=== PATIENT | male | born 2000 | race Caucasian/White ===

== ENCOUNTER 2020-12-02 21:48 | Emergency (ER) | payer OTHER, MEDICAID, SELFPAY ==
[2020-12-02 21:55] VITALS: BP 148/89; PULSE 65; RESP 17; TEMP 36.8; O2SAT 100; BMI 26.6
[2020-12-02 22:24] VITALS: BP 122/79; O2SAT 98
--- NOTE | 2020-12-02 22:34 | ED.BACK ---
HPI - Back Pain/Injury General Chief Complaint: Back Pain/Injury Stated Complaint: RIGHT SIDE BACK LOWER PAIN Time Seen by Provider: 12/02/20 22:28 Source: patient Mode of arrival: Ambulatory Limitations: no limitations History of Present Illness HPI Narrative: Patient is a 20-year-old male here for evaluation of right lower back pain. Patient states that he was working on his car all day today and then this evening bent over to fruit or nut picker his child and had some pain in this area. He has no radiation down his legs peers never had this in the past. He states that his told him to come in to get his kidneys checked. Related Data Home Medications Medication Instructions Recorded Confirmed [FLOVENT HFA] PRN #0 01/11/11 Previous Rx's Medication Instructions Recorded ALBUTEROL SULFATE (PROVENTIL 3 ml INH Q4HP #1 07/19/11 0.083%) montelukast [Singulair] 5 mg PO QDAY #30 07/19/11 methylphenidate HCl [Concerta] 54 mg PO Q DAY #30 05/05/12 ALBUTEROL SULFATE (#VENTOLIN HFA) 0.09 mg IH Q4HP #2 09/03/12 Allergies Allergy/AdvReac Type Severity Reaction Status Date / Time No Known Drug Allergies Allergy Verified 12/02/20 22:15 Review of Systems Constitutional Constitutional: Denies fever(s) Cardiovascular Cardiovascular: Denies chest pain and Denies dyspnea Respiratory Respiratory: Denies dyspnea Gastrointestinal Gastrointestinal: Denies abdominal pain Musculoskeletal Musculoskeletal: Reports back pain and Denies tingling Integumentary/Breasts Skin/Breast: Denies rash Neurologic Neurologic: Denies tingling and Denies paresthesias Hematologic/Lymphatic On Anticoagulants: No Allergic/Immunologic Allergic/Immunologic: Denies urticaria Patient History Medical History Healthy adult Social History Smoking Status: Current every day smoker Smoking Status: Current every day smoker tobacco type: vaping alcohol intake frequency: a few times a month Substance Use Type: marijuana Exam Initial Vital Signs Initial Vital Signs: Vital Signs Temperature 98.3 F 12/02/20 21:55 Pulse Rate 65 12/02/20 21:55 Respiratory Rate 17 12/02/20 21:55 Blood Pressure 148/89 H 12/02/20 21:55 Pulse Oximetry 100 12/02/20 21:55 Const General: cooperative and comfortable Limitations: mental status not altered HENMT Head: normal to inspection and normocephalic Resp Effort & Inspection: normal respiratory effort Auscultation: clear to auscultation bilaterally Cardio Rate: regular rate Rhythm: regular rhythm Back/Spine/Pelvis Cervical Spine: No cervical spinal tenderness Thoracic/Lumbar Spine: paraspinal tenderness, No thoracic spinal tenderness and No lumbar spinal tenderness Skin Lesions: no lesions Rashes: no rashes Neuro General: patient alert and patient awake Cognition: normal cognition Speech: speech normal Extrem General: capillary refill normal Psych Appearance: grossly normal and well kempt Course Vital Signs Vital signs: Vital Signs - 8 hr 12/02/20 21:55 12/02/20 22:24 Temperature 98.3 F Pulse Rate 65 Respiratory Rate 17 Blood Pressure 148/89 H 122/79 Pulse Oximetry 100 98 MDM - Back Pain/Injury Lab Data Attestation: I reviewed the patient's lab results. Labs: Urine Dip Bedside Urine Glucose Negative Bedside Urine Bilirubin - Negative Bedside Urine Ketone - Negative Urine Specific [place] 1.025 Bedside Urine Occult Blood - Negative Bedside Urine pH 6.0 Bedside Urine Protein - Negative Bedside Urine Urobilinogen - Negative Bedside Urine Nitrite - Negative Bedside Urine Leukocytes - Negative Esterase MDM Narrative Medical decision making narrative: Patient has a very benign exam. He is tender to palpation the right paraspinal region. The very high suspicion that this is musculoskeletal in origin. No indication for radiologic studies. No indication for antibiotics. He is given return precautions and follow-up instructions. He expressed understanding and agreement. Discharge Plan Departure Patient Disposition: Home Clinical Impression: Acute flank pain Instructions: DI for Muscle Strain Activity Restrictions/Additional Instructions: Continue all of your medications as directed. You can use heat/ice and also anti-inflammatories such as Tylenol and/or Motrin for discomfort. Return to the emergency department for any new or worsening symptoms Prescriptions: No Action [FLOVENT HFA] PRN Qty: 0 RF: 0 ALBUTEROL SULFATE (PROVENTIL 0.083%) 3 ml INH Q4HP Qty: 1 RF: 12 montelukast [Singulair] 5 MG tablet,chewable 5 mg PO QDAY Qty: 30 RF: 12 methylphenidate HCl [Concerta] 54 MG tablet extended release 24hr 54 mg PO Q DAY Qty: 30 RF: 0 ALBUTEROL SULFATE (#VENTOLIN HFA) 0.09 mg IH Q4HP Qty: 2 RF: 5 Referrals: Queenie Neumann PA-C [Primary Care Provider] -
--- NOTE | 2020-12-02 22:48 | PC.NURSE ---
defer to provider assessment, pt DC'd before assessment by RN.
== END 2020-12-02 22:48 | disposition home or self-care (01) ==
PROVIDERS: Emergency Provider Emergency Medicine; PCP Physician Assistant
DX: M54.5 Low back pain (principal)
CPT/HCPCS: 81003; 99282; 99283

== ENCOUNTER 2021-03-05 11:15 | Emergency (ER) | payer OTHER, MEDICAID, SELFPAY ==
[2021-03-05] VITALS (8 sets, daily range): BP systolic 123–145; BP diastolic 70–94; PULSE 60–76; RESP 17–21; O2SAT 97–100; BMI 25.8
[2021-03-05 12:36] LABS: Add Manual Diff / Slide Review NO; Basophils Absolute Auto 0 /uL (0-100); Basophils Percent Auto 0.5 % (0-2); Eosinophils Absolute Auto 300 /uL (0-450); Eosinophils Percent Auto 3.8 % (2-4); Hematocrit 47.9 % (41-53); Hemoglobin 16.7 g/dL (13.5-17.5); Lymphocytes Absolute Auto 2300 /uL (1100-4500); Lymphocytes Percent Auto 26.5 % (25-40); Mean Corpuscular Hemoglobin 29.5 PG (26-34); Mean Corpuscular Volume 84.5 fL (80-100); Monocytes Absolute Auto 500 /uL (0-900); Monocytes Percent Auto 6.2 % (3-14); Neutrophils Absolute Auto 5400 /uL (1500-7000); Platelet Count 231 X10^3/uL (150-400); Red Blood Cell Count 5.67 X10^6/uL (4.5-5.9); Red Cell Distribution Width 13.1 % (11.6-14.8); White Blood Cell Count 8.5 X10^3/uL (4.5-11.0)
[2021-03-05 12:39] LABS: BUN Creatinine Ratio 17.2 (6-22); Blood Urea Nitrogen 16 mg/dL (9-20); Calcium 9.9 mg/dL (8.4-10.2); Carbon Dioxide 26 mmol/L (22-32); Chloride 106 mmol/L (98-107); Estimated Glomerular Filt Rate > 60.0 mL/min (>60); Glucose 65 mg/dL (70-100); HEMOLYSIS 16 (0-50); Sodium 141 mmol/L (137-145)
--- NOTE | 2021-03-05 14:37 | PC.NURSE ---
Pt's was the one to witness the seizure like activity. She states it was like he was shivering but more intense and when I tapped him on the shoulder it woke him up but he seemed confused. This happened three times through out the night. Pt has had an absent seizure a year ago but was not started on any medication. Family hx of seizure. No loss of bowel or bladder
--- NOTE | 2021-03-05 15:17 | ED_ITS ---
HPI - Neuro Symptoms/Deficit General Chief Complaint: Neuro Symptoms/Deficit Stated Complaint: SEIZURES EVERY 2 HOURS LAST NIGHT Time Seen by Provider: 03/05/21 15:16 Source: patient Mode of arrival: Ambulatory Limitations: no limitations History of Present Illness HPI Narrative: This is a 20-year-old male comes emergency department with complaints of seizures. Patient has a prior episodes of what he describes as a thought seizures or staring. Patient states he will zone out and shortly after be confused for short period of time. He has had episodes where he has had generalized shaking. His noted last night that it seemed like he was twitching more than is typical when someone is sleeping she states at 1 point he seemed to be shaking all over. Patient had several episodes of this overnight. At 1 point she woke him up but he seems confused and shortly went back to sleep. Patient does not have known seizure disorder and has never followed up with anyone regarding possible seizure disorder. He has a family history of both his father and grandfather having seizures starting her on the ages 19 and 20, And has a history of asthma and seasonal allergies himself. Patient states that he felt very fatigued today, he felt like he had bit the inside of his cheek this morning, he did not have any incontinence. He denies headache, vision changes, no numbness, tingling or weakness. he denies any fevers, chills, cold cough or congestion. He has not had any new chest pain or shortness of breath. No syncopal episodes. No nausea or vomiting. He has not any new GI or urinary symptoms. Patient does smoke regularly, he uses alcohol occasionally and states that he had 1 beer last night. He does use marijuana intermittently. Patient is not currently driving. On Anticoagulants: No Related Data Home Medications Medication Instructions Recorded Confirmed [FLOVENT HFA] PRN #0 01/11/11 Previous Rx's Medication Instructions Recorded ALBUTEROL SULFATE (PROVENTIL 3 ml INH Q4HP #1 07/19/11 0.083%) montelukast [Singulair] 5 mg PO QDAY #30 07/19/11 methylphenidate HCl [Concerta] 54 mg PO Q DAY #30 05/05/12 ALBUTEROL SULFATE (#VENTOLIN HFA) 0.09 mg IH Q4HP #2 09/03/12 levetiracetam [Keppra] 500 mg PO Q12H #60 tab 03/05/21 Allergies Allergy/AdvReac Type Severity Reaction Status Date / Time No Known Drug Allergies Allergy Verified 12/02/20 22:15 Review of Systems Review of Systems ROS Unobtainable: All systems reviewed & are unremarkable except as noted in HPI and below Hematologic/Lymphatic On Anticoagulants: No Patient History Medical History Healthy adult Social History Smoking Status: Current every day smoker Smoking Status: Current every day smoker tobacco type: vaping alcohol intake frequency: a few times a month Substance Use Type: marijuana Exam Narrative Exam Narrative: GEN: well nourished, well appearing male, alert and oriented x 3, patient appears to be in mild distress. HEENT: Atraumatic, pupils are equal round reactive to light, extraocular movements are intact, nares are clear, TMs are clear with no fluid, there is no conjunctival pallor. Throat is clear without any exudates, erythema, tonsillar enlargement or uvular deviation, no facial. HEART: Regular rate and rhythm without murmur, clicks, rubs. LUNGS:Lungs clear to auscultation, no wheezes, rales, crackles, chest moves symmetrically ABD:bowel sounds normal, soft, non-tender, no guarding, rebound, rigidity, no masses noted, no hepatosplenomegaly :No CVA tenderness MSCL: Non-tender, no muscle atrophy, muscles strength 5/5 upper and lower extremities, full range of motion, normal gait NEURO:CN 2-12 intact, sensation normal, reflexes 2/4 upper and lower extre mities. finger nose finger test normal, heel kiran test normal, romberg normal SKIN: no rash, erythema or Skin changes noted. Initial Vital Signs Initial Vital Signs: Vital Signs Pulse Rate 76 03/05/21 11:30 Respiratory Rate 18 03/05/21 11:30 Blood Pressure 145/94 H 03/05/21 11:30 Pulse Oximetry 100 03/05/21 11:30 Scores GCS Karen coma scale eye opening: Spontaneous Karen coma scale verbal response: Orientated Karen coma scale motor response: Obey commands [place] coma scale total score: 15 Course Orders Ordered: ED Orders 03/05/21 11:46 BMP [Basic Metabolic Panel] Stat CBC Auto Diff [Complete Blood Count AUTO DIFF] Stat Ethanol (ETOH) Stat Magnesium Stat Prolactin Stat 03/05/21 15:35 Urinalysis and Microscopic Stat Urine Drug Screen, Rapid Stat 03/05/21 15:45 EKG-12 Lead Stat 03/05/21 17:02 CT head/brain wo con Stat Discontinued Medications Sodium Chloride (Normal Saline 0.9%) 1,000 mls @ 1,000 mls/hr IV BOLUS ONE Stop: 03/05/21 16:15 Last Infusion: 03/05/21 16:46 Dose: 0 mls/hr Documented by: Admin: 03/05/21 15:29 Dose: 1,000 mls/hr Documented by: MEKA Levetiracetam 1,000 mg/ Sodium (Chloride) 110 mls @ 440 mls/hr IV NOW ONE Stop: 03/05/21 17:04 Last Infusion: 03/05/21 17:31 Dose: 0 mls/hr Documented by: Admin: 03/05/21 17:15 Dose: 440 mls/hr Documented by: MEKA Reevaluation(s) Reevaluation #1: Neurology, Vital Signs Vital signs: Vital Signs - 8 hr 03/05/21 11:30 03/05/21 15:32 03/05/21 15:33 Pulse Rate 76 68 67 Respiratory Rate 18 Blood Pressure 145/94 H 137/79 Pulse Oximetry 100 98 98 03/05/21 16:00 03/05/21 16:30 03/05/21 17:00 Pulse Rate 60 67 69 Respiratory Rate 19 21 20 Blood Pressure 123/70 123/78 134/82 Pulse Oximetry 98 98 99 03/05/21 17:30 03/05/21 18:00 Pulse Rate 72 68 Respiratory Rate 20 17 Blood Pressure Pulse Oximetry 97 98 MDM - Neuro Symptoms/Deficit Lab Data Attestation: I reviewed the patient's lab results. Result diagrams: 03/05/21 11:46 03/05/21 11:46 Labs: Lab Results 03/05/21 03/05/21 03/05/21 Range/Units 11:46 11:46 11:46 WBC 8.5 (4.5-11.0) X10^3/uL RBC 5.67 (4.5-5.9) X10^6/uL Hgb 16.7 (13.5-17.5) g/dL Hct 47.9 (41-53) % MCV 84.5 (80-100) fL MCH 29.5 (26-34) PG MCHC 35.0 (30-36) % RDW 13.1 (11.6-14.8) % Plt Count 231 (150-400) X10^3/uL Neut % (Auto) 63.0 (50-75) % Lymph % (Auto) 26.5 (25-40) % [place] % (Auto) 6.2 (3-14) % Eos % (Auto) 3.8 (2-4) % Baso % (Auto) 0.5 (0-2) % Neut # (Auto) 5400 (6850-2776) /uL Lymph # (Auto) 2300 (3530-2579) /uL [place] # (Auto) 500 (0-900) /uL Eos # (Auto) 300 (0-450) /uL Baso # (Auto) 0 (0-100) /uL Sodium 141 (137-145) mmol/L Potassium 4.0 (3.4-5.1) mmol/L Chloride 106 (98-107) mmol/L Carbon Dioxide 26 (22-32) mmol/L BUN 16 (9-20) mg/dL Creatinine 0.93 (0.66-1.25) mg/dL Estimated GFR > 60.0 (>60) mL/min BUN/Creatinine Ratio 17.2 (6-22) Glucose 65 L (70-100) mg/dL Calcium 9.9 (8.4-10.2) mg/dL Magnesium 2.1 (1.6-2.3) mg/dL Prolactin 11.9 (3.7-17.9) ng/mL Urine Color Urine Appearance Urine pH (4.5-8.0) Ur Specific [place] (1.000-1.035) Urine Protein (Negative) Urine Glucose (UA) (Negative) g/dL Urine Ketones (NEGATIVE) Urine Occult Blood (Negative) Urine Nitrate (Negative) Urine Bilirubin (NEGATIVE) Urine Urobilinogen (0.2) E.U./dL Ur Leukocyte Esterase (NEGATIVE) Urine RBC (0-5/HPF) Urine WBC (0-5/HPF) Ur Squamous Epith Cells (0-5/HPF) Amorphous Sediment Urine Bacteria (None) Urine Mucus (Negative) Ur Culture Indicated? U Opiates 300ng/mL cut (Negative) Ur Oxycodone Screen (Negative) Urine Methadone Screen (Negative) Ur Barbiturates Screen (Negative) U Tricyclic Antidepress (Negative) Ur Phencyclidine Scrn (Negative) Ur Amphetamines Screen (Negative) U Methamphetamines Scrn (Negative) Ur MDMA Scrn (Ecstasy) (Negative) U Benzodiazepines Scrn (Negative) Urine Cocaine Screen (Negative) U Marijuana (THC) Screen (Negative) Ethyl Alcohol < 10 ( - 10) mg/dL 03/05/21 03/05/21 Range/Units 15:35 15:35 WBC (4.5-11.0) X10^3/uL RBC (4.5-5.9) X10^6/uL Hgb (13.5-17.5) g/dL Hct (41-53) % MCV (80-100) fL MCH (26-34) PG MCHC (30-36) % RDW (11.6-14.8) % Plt Count (150-400) X10^3/uL Neut % (Auto) (50-75) % Lymph % (Auto) (25-40) % [place] % (Auto) (3-14) % Eos % (Auto) (2-4) % Baso % (Auto) (0-2) % Neut # (Auto) (5943-3704) /uL Lymph # (Auto) (7611-6251) /uL [place] # (Auto) (0-900) /uL Eos # (Auto) (0-450) /uL Baso # (Auto) (0-100) /uL Sodium (137-145) mmol/L Potassium (3.4-5.1) mmol/L Chloride (98-107) mmol/L Carbon Dioxide (22-32) mmol/L BUN (9-20) mg/dL Creatinine (0.66-1.25) mg/dL Estimated GFR (>60) mL/min BUN/Creatinine Ratio (6-22) Glucose (70-100) mg/dL Calcium (8.4-10.2) mg/dL Magnesium (1.6-2.3) mg/dL Prolactin (3.7-17.9) ng/mL Urine Color Yellow Urine Appearance Clear Urine pH 7.0 (4.5-8.0) Ur Specific [place] 1.020 (1.000-1.035) Urine Protein Negative (Negative) Urine Glucose (UA) Trace H (Negative) g/dL Urine Ketones Negative (NEGATIVE) Urine Occult Blood Negative (Negative) Urine Nitrate Negative (Negative) Urine Bilirubin Negative (NEGATIVE) Urine Urobilinogen 0.2 (0.2) E.U./dL Ur Leukocyte Esterase Negative (NEGATIVE) Urine RBC None seen (0-5/HPF) Urine WBC 0-1/hpf (0-5/HPF) Ur Squamous Epith Cells 0-1 /hpf (0-5/HPF) Amorphous Sediment 1+ Urine Bacteria None seen (None) Urine Mucus 2+ H (Negative) Ur Culture Indicated? Cult not indicated U Opiates 300ng/mL cut Negative (Negative) Ur Oxycodone Screen Negative (Negative) Urine Methadone Screen Negative (Negative) Ur Barbiturates Screen Negative (Negative) U Tricyclic Antidepress Negative (Negative) Ur Phencyclidine Scrn Negative (Negative) Ur Amphetamines Screen Negative (Negative) U Methamphetamines Scrn Negative (Negative) Ur MDMA Scrn (Ecstasy) Negative (Negative) U Benzodiazepines Scrn Negative (Negative) Urine Cocaine Screen Negative (Negative) U Marijuana (THC) Screen Negative (Negative) Ethyl Alcohol ( - 10) mg/dL Imaging Data CT scan - head: Radiologist's Impression: [address] [id number] Scan ReportSigned Patient: Dinesh oMreno [facility]#: [id number]: 2000Acct:[id number]/Sex: 20 / MDate of Service: 03/05/21Loc: EDAccession Number: [id number] Procedure: CT head/brain wo con Ordering Provider: Marisabel Hendrickson D.O. PROCEDURE: CT HEAD/BRAIN WO CON INDICATIONS: seizures TECHNIQUE: Noncontrast 4.5 mm thick angled axial sections acquired from the foramen magnum to the vertex, with coronal and sagittal reformats. For radiation dose reduction, the following was used: automated exposure control, adjustment of mA and/or kV according to patient size. COMPARISON: None. FINDINGS: Image quality: Excellent. CSF spaces: Basal cisterns are patent. No extra-axial fluid collections. Ventricles are normal in size and shape. Brain: No midline shift. No intracranial masses or hemorrhage. Aviles-white matter interface is normal. There is increased density present in distal left vertebral artery focally, on image 5/2, as well as focally in the basilar artery, image 10/2. Skull and face: Calvarium and visualized facial bones are intact, without suspicious lesions. Sinuses: Visualized sinuses and mastoids are clear. IMPRESSION: 1. No evidence acute stroke, hemorrhage, or mass. 2. Focal increased density in the distal left vertebral artery and basilar artery focally. This can be seen with acute embolic phenomenon. Comment: Findings were discussed with Dr. Hendrickson on 03/05/2021 at 1639 hours [place] daylight time. Apparently, the patient is neurologically intact, and the vague increased density in these locations may simply represent calcifications within the vessel interiano. Dictated by: Mendoza Bender M.D. on 03/05/2021 at 16:31 Approved by: Mendoza Bender M.D. on 03/05/2021 at 16:44 ECG Data Attestation: I personally reviewed and interpreted this ECG as follows: Interpretation: with sinus rhythm with marked sinus arrhythmia. , rate of 66 OR interval 152 QRS of 94 and QTC of 398. Patient has inverted T-wave in lead 3. No elevation appreciated. [facility] Narrative Medical decision making narrative: this is a 20-year-old male with possible seizure disorder. Patient describes history of absent seizures but has never been formally evaluated or diagnosed. He had possibly some tonic-clonic mo vement overnight but is unclear if it truly was his. Head CT was ordered, Radiology reviewed they were read and there were 2 small areas that could have been calcification but potential for embolic lesions. Patient's exam findings and evaluation today are not consistent. Patient labs, EKG do not show any other acute causes. Patient case was discussed with Neurology who does recommend follow-up, they feel patient would benefit from an outpatient MRI any does have primary care can can help arrange this. Patient was given referral to Neurology. Loaded with Keppra here in the department on started on 500 mg Keppra b.i.d. at the direction of Dr. Keene from [facility] Neurology. Patient and his were both bedside, we discussed safety measures such as not driving, swimming alone or placing himself or others in situations that could potentially harm or kill someone if he is continuing to have seizures. They did note that patient's did have his license revoked but were not clear about the cause of this if it was DUI or possibly other cause. Discharge Plan Departure Patient Disposition: Home Clinical Impression: Seizure-like activity Instructions: DI for Seizure Disorder -- Adult Activity Restrictions/Additional Instructions: Follow up with neurology for recheck. Call to set up an appointment. I spoke with Dr. Diaz today, he does agree you should be seen in follow up and future imaging such as MRI would be appropriate. Your primary care physician can also help arrange this as an outpatient. Your imaging today shows a focal density at the left vertebral and a separate location at the basilar artery. Alcohol can possibly cause or unmasked seizure activity and I would avoid this. You should not drive, perform Hazardous activities, bathe or swim alone until you have been medically cleared by your physician or a neurologist. Please return for fevers, altered mental status, new numbness, tingling or weakness in her extremities, severe headaches, new chest pain or shortness breath persistent vomiting, black or bloody stools or other new or concerning symptoms. Prescriptions: New levetiracetam [Keppra] 500 mg tablet 500 mg PO Q12H Qty: 60 RF: 0 No Action [FLOVENT HFA] PRN Qty: 0 RF: 0 ALBUTEROL SULFATE (PROVENTIL 0.083%) 3 ml INH Q4HP Qty: 1 RF: 12 montelukast [Singulair] 5 MG tablet,chewable 5 mg PO QDAY Qty: 30 RF: 12 methylphenidate HCl [Concerta] 54 MG tablet extended release 24hr 54 mg PO Q DAY Qty: 30 RF: 0 ALBUTEROL SULFATE (#VENTOLIN HFA) 0.09 mg IH Q4HP Qty: 2 RF: 5 Referrals: Shonda Ca MD [Non-Staff] - Queenie Neumann PA-C [Primary Care Provider] -
[2021-03-05] MEDS: SODIUM CHLORIDE 0.9% 1,000 ML 1000 ML IV (15:29)
[2021-03-05 15:32] LABS: Ethanol (ETOH) < 10 mg/dL; Magnesium 2.1 mg/dL (1.6-2.3)
[2021-03-05 15:40] LABS: Bacteria Urine None Seen; RBC Urine None Seen (0-5/HPF)
[2021-03-05 15:41] LABS: Appearance Urine UA CLEAR; Bilirubin Urine UA NEGATIVE (NEGATIVE); Color Urine UA YELLOW; Glucose Urine UA TRACE g/dL (Negative); Ketones Urine UA NEGATIVE (NEGATIVE); Leukocyte Esterase Urine UA NEGATIVE (NEGATIVE); Nitrite Urine UA NEGATIVE (Negative); Occult Blood Urine UA NEGATIVE (Negative); Protein Urine UA NEGATIVE (Negative); Urobilinogen Urine UA 0.2 E.U./dL (0.2)
[2021-03-05 15:46] LABS: UR Morphine/Opiate cutoff 300 Negative (Negative); Ur Creatinine Normal (Normal); Ur Specific Gravity Normal (Normal); Urine Amphetamines Negative (Negative); Urine Barbiturates Negative (Negative); Urine Benzodiazepines Negative (Negative); Urine Cocaine Negative (Negative); Urine MDMA Negative (Negative); Urine Methadone Negative (Negative); Urine Methamphetamines Negative (Negative); Urine Oxycodone Negative (Negative); Urine Phencyclidine Negative (Negative); Urine Tetrahydrocannabinol Negative (Negative); Urine Tricyclic Antidepressant Negative (Negative); Urine pH Normal (Normal)
[2021-03-05 15:50] LABS: Prolactin 11.9 ng/mL (3.7-17.9)
[2021-03-05 15:59] LABS: Amorphous Sediment Urine 1+; Squamous Epithelial Cell Urine 0-1 /HPF (0-5/HPF); WBC Urine 0-1/HPF (0-5/HPF)
[2021-03-05 16:00] LABS: Culture Indicated Urine Cult Not Indicated; Mucus Urine 2+ (Negative)
--- NOTE | 2021-03-05 16:49 | PC.NURSE ---
late entry, patient's lab resulted, noticed glucose 65, provided apple juice, violet crackers and string cheese around 1330.
--- NOTE | 2021-03-05 17:02 | DI.CT.S_ITS ---
PROCEDURE: CT HEAD/BRAIN WO CON INDICATIONS: seizures TECHNIQUE: Noncontrast 4.5 mm thick angled axial sections acquired from the foramen magnum to the vertex, with coronal and sagittal reformats. For radiation dose reduction, the following was used: automated exposure control, adjustment of mA and/or kV according to patient size. COMPARISON: None. FINDINGS: Image quality: Excellent. CSF spaces: Basal cisterns are patent. No extra-axial fluid collections. Ventricles are normal in size and shape. Brain: No midline shift. No intracranial masses or hemorrhage. Aviles-white matter interface is normal. There is increased density present in distal left vertebral artery focally, on image 5/2, as well as focally in the basilar artery, image 10/2. Skull and face: Calvarium and visualized facial bones are intact, without suspicious lesions. Sinuses: Visualized sinuses and mastoids are clear. IMPRESSION: 1. No evidence acute stroke, hemorrhage, or mass. 2. Focal increased density in the distal left vertebral artery and basilar artery focally. This can be seen with acute embolic phenomenon. Comment: Findings were discussed with Dr. Hendrickson on 03/05/2021 at 1639 hours [place] daylight time. Apparently, the patient is neurologically intact, and the vague increased density in these locations may simply represent calcifications within the vessel interiano. Dictated by: Mendoza Bender M.D. on 03/05/2021 at 16:31 Approved by: Mendoza Bender M.D. on 03/05/2021 at 16:44
[2021-03-05] MEDS: levETIRAcetam 1,000 MG in SODIUM CHLORIDE 0.9% 100 ML 440 ML IV (17:15)
== END 2021-03-05 19:07 | disposition home or self-care (01) ==
PROVIDERS: Emergency Provider Emergency Medicine; PCP Physician Assistant
DX: R56.9 Unspecified convulsions (principal)
CPT/HCPCS: 36415; 70450; 80048; 80305; 80320; 81001; 83735; 84146; 85025; 93005; 96361; 96365; 99284; J1953

== ENCOUNTER 2021-05-21 11:35 | Emergency (ER) | payer OTHER, MEDICAID, SELFPAY ==
[2021-05-21 11:44] VITALS: BP 144/74; PULSE 99; RESP 18; TEMP 36.9; O2SAT 96; BMI 26.6
--- NOTE | 2021-05-21 13:13 | PC.NURSE ---
Received call from registration that pt had left without being seen.
== END 2021-05-21 13:14 | disposition left against medical advice (07) ==
PROVIDERS: Emergency Provider Emergency Medicine
CPT/HCPCS: 99281

== ENCOUNTER → 2021-06-22 18:16 | Outpatient (CLI) | payer OTHER, MEDICAID, SELFPAY ==
[2021-06-22 18:52] LABS: COVID19 -Nasal RAPID Negative (Negative)
== END ==
PROVIDERS: Referring Provider Nurse Practitioner; Visit Provider Nurse Practitioner
DX: Z20.822 Contact with and (suspected) exposure to COVID-19 (principal)
CPT/HCPCS: 87635

== ENCOUNTER → 2024-11-17 11:17 | Outpatient (CLI) | payer OTHER, SELFPAY ==
[2024-11-17 12:17] LABS: COVID-19 CEPHEID 4-PLEX PCR Negative (Negative); Influenza A - CEPHEID Flu A NEGATIVE (NEGATIVE); Influenza B - CEPHEID Flu B NEGATIVE (NEGATIVE); Respiratory Syncytial Virus Negative (Negative)
== END ==
PROVIDERS: Visit Provider Physician Assistant
DX: J02.9 Acute pharyngitis, unspecified (principal); J06.9 Acute upper respiratory infection, unspecified
CPT/HCPCS: 87635; 87400 ×2; 87420; 0241U; 87070

== ENCOUNTER 2024-11-30 20:22 | Emergency (ER) | payer OTHER, SELFPAY ==
[2024-11-30 20:25] VITALS: BP 156/93; PULSE 83; RESP 18; TEMP 36.4; O2SAT 98; BMI 29.8
[2024-11-30] MEDS: ALBUTEROL HFA PREPACK 1 BOX MISC (20:47)
[2024-11-30 20:51] VITALS: PULSE 94; RESP 16; O2SAT 97
--- NOTE | 2024-11-30 21:46 | ED_ITS ---
HPI - Asthma General Chief Complaint: Asthma Stated Complaint: asthma attack Time Seen by Provider: 11/30/24 20:43 Source: patient Mode of arrival: Ambulatory History of Present Illness HPI Narrative: 24-year-old male history of asthma, anxiety patient presents with complaint of feeling like he was going to have an asthma attack. 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 He is out of his inhaler and so presents had a couple puffs here in the department and feels resolved. He does have a steroid inhaler he was still has a available and takes daily he was on montelukast and escitalopram as his home medications. He states he does not normally have big asthma attacks he has not had to go the ER and a long time. Denies any other drug allergies. Quit smoking and states that is since he was quit smoking he has had much improvement in his breathing. Related Data Home Medications Medication Instructions Recorded Confirmed [FLOVENT HFA] PRN ##0 01/11/11 11/17/24 albuterol sulfate 90 mcg/actuation 2 puff inhalation Q4H PRN 06/02/24 11/17/24 aerosol inhaler escitalopram oxalate 20 mg tablet 20 mg PO DAILY 06/02/24 11/17/24 fluticasone propionate 110 inhalation 06/02/24 11/17/24 mcg/actuation HFA aerosol inhaler tizanidine 2 mg tablet 2 mg PO ONCE PM 06/02/24 11/17/24 Previous Rx's Medication Instructions Recorded ALBUTEROL SULFATE (PROVENTIL 3 ml INH Q4HP ##1 07/19/11 0.083%) montelukast 5 mg chewable tablet 5 mg PO QDAY ##30 07/19/11 (Singulair) methylphenidate HCl 54 mg 54 mg PO Q DAY ##30 05/05/12 tablet,extended release 24 hr (Concerta) ALBUTEROL SULFATE (#VENTOLIN HFA) 0.09 mg IH Q4HP ##2 09/03/12 levetiracetam 500 mg tablet 500 mg PO Q12H #60 tabs 03/05/21 (Keppra) benzonatate 200 mg capsule 200 mg PO TID PRN cough #30 caps 11/17/24 fluticasone propionate 50 1 spray intranasal DAILY #16 grams 11/17/24 mcg/actuation nasal spray,suspension (Flonase Allergy Relief) guaifenesin 1,200 mg tablet, 1,200 mg PO Q12H #30 tabs 11/17/24 extended release 12 hr Allergies Allergy/AdvReac Type Severity Reaction Status Date / Time No Known Drug Allergies Allergy Verified 11/30/24 20:25 Review of Systems Review of Systems ROS Unobtainable: All systems reviewed & are unremarkable except as noted in HPI and below Patient History Medical History Healthy adult Social History Smoking Status: Current every day smoker Smoking Status: Current every day smoker tobacco type: vaping alcohol intake frequency: a few times a month Exam Narrative Exam Narrative: GEN: well nourished, well appearing male, alert and oriented x [default value], patient appears to be in mild distress. HEENT: Atraumatic, pupils are equal round reactive to light, extraocular movements are intact, nares are clear, there is no conjunctival pallor. Throat is clear without any exudates, erythema, tonsillar enlargement or uvular deviation HEART: Regular rate and rhythm without murmur, clicks, rubs. LUNGS:Lungs clear to auscultation, no wheezes, rales, crackles, chest moves symmetrically, patient had several puffs of his inhaler prior to evaluation. ABD:bowel sounds normal, soft, non-tender, no guarding, rebound, rigidity, no masses noted, no hepatosplenomegaly MSCL: Non-tender, no muscle atrophy, muscles strength 5/5 upper and lower extremities, full range of motion, normal gait NEURO:CN 2-12 intact, sensation normal Initial Vital Signs Initial Vital Signs: Vital Signs Temperature 97.5 F L 11/30/24 20:25 Pulse Rate 83 11/30/24 20:25 Respiratory Rate 18 11/30/24 20:25 Blood Pressure 156/93 H 11/30/24 20:25 Pulse Oximetry 98 11/30/24 20:25 Oxygen Delivery Method Room Air 11/30/24 20:25 Course Orders Ordered: Discontinued Medications Albuterol (Albuterol Hfa Prepack) 1 box [facility] [place] [facility] [place] Stop: 11/30/24 20:44 Last Admin: 11/30/24 20:47 Dose: 1 box Documented By: JASVIR Dexamethasone (Dexamethasone 10 Mg/Ml Vial) 10 mg PO NOW ONE Stop: 11/30/24 21:49 Last Admin: 11/30/24 22:00 Dose: 10 mg Documented By: YAMILKA Vital Signs Vital signs: Vital Signs - 8 hr 11/30/24 20:25 11/30/24 20:51 11/30/24 21:56 Temperature 97.5 F L Pulse Rate 83 94 H 77 Respiratory Rate 18 16 18 Blood Pressure 156/93 H 134/92 H Pulse Oximetry 98 97 100 Oxygen Delivery Method Room Air Room Air Room Air Fraction of Inspired Oxygen 21 MDM - Asthma MDM Narrative Medical decision making narrative: 24-year-old male comes presenting request for albuterol inhaler or refill feels little tight and like he was having little bit of asthma flare in his run out of his albuterol. Had several puffs here in the department states he feels it resolved. He has a history of asthma is on his regular maintenance medications had just run out of his regular inhaler. We will give a single dose of dexamethasone. Patient is felt appropriate for discharge home. Discharge Plan Departure Patient Disposition: Home Clinical Impression: Asthma Instructions: DI for Asthma -- Adult Activity Restrictions/Additional Instructions: Follow up with your physician to make sure to have refills of your inhaler. Please return if you have new or worsening symptoms, new chest pain, increasing shortness of breath, fevers, difficulty with breathing, throwing up, new swelling in your extremities or other new or concerning changes. Prescriptions: No Action fluticasone propionate 110 mcg/actuation HFA aerosol inhaler inhalation tizanidine 2 mg tablet 2 mg PO ONCE PM albuterol sulfate 90 mcg/actuation HFA aerosol inhaler 2 puff inhalation Q4H PRN escitalopram oxalate 20 mg tablet 20 mg PO DAILY guaifenesin 1,200 mg tablet extended release 12hr 1,200 mg PO Q12H Qty: 30 0RF benzonatate 200 mg capsule 200 mg PO TID PRN (Reason: cough) Qty: 30 0RF fluticasone propionate [Flonase Allergy Relief] 50 mcg/actuation spray,suspension 1 spray intranasal DAILY Qty: 16 2RF Rx Instructions: administer into each nostril [FLOVENT HFA] PRN Qty: 0 ALBUTEROL SULFATE (PROVENTIL 0.083%) 3 ml INH Q4HP Qty: 1 12RF montelukast [Singulair] 5 MG tablet,chewable 5 mg PO QDAY Qty: 30 12RF methylphenidate HCl [Concerta] 54 MG tablet extended release 24hr 54 mg PO Q DAY Qty: 30 0RF ALBUTEROL SULFATE (#VENTOLIN HFA) 0.09 mg IH Q4HP Qty: 2 5RF levetiracetam [Keppra] 500 mg tablet 500 mg PO Q12H Qty: 60 0RF Referrals: Miscellaneous,Doctor, MD [Primary Care Provider] - Stand Alone Forms: Patient Portal/API/Survey
[2024-11-30 21:56] VITALS: BP 134/92; PULSE 77; RESP 18; O2SAT 100
[2024-11-30] MEDS: DEXAMETHASONE 10 MG/ML VIAL PO (22:00)
== END 2024-11-30 22:04 | disposition home or self-care (01) ==
PROVIDERS: Emergency Provider Emergency Medicine
DX: J45.909 Unspecified asthma, uncomplicated (principal); Z87.891 Personal history of nicotine dependence
CPT/HCPCS: 94640; 99283; J1100

== ENCOUNTER 2025-07-15 21:08 | Emergency (ER) | payer OTHER, SELFPAY ==
[2025-07-15 21:14] VITALS: BP 135/95; PULSE 94; RESP 22; TEMP 37.2; O2SAT 97; BMI 30.2
[2025-07-15] MEDS: ALBUTEROL/IPRATROPIUM 3 ML AMPUL INH ×2 (21:30→23:49)
[2025-07-15 21:45] LABS: Strep Grp A by PCR Rapid Negative (Negative)
[2025-07-15 21:58] VITALS: PULSE 94; RESP 22; O2SAT 98
[2025-07-15 22:11] LABS: COVID-19 CEPHEID 4-PLEX PCR Negative (Negative); Influenza A - CEPHEID Flu A NEGATIVE (NEGATIVE); Influenza B - CEPHEID Flu B NEGATIVE (NEGATIVE)
[2025-07-15 23:36] VITALS: BP 134/87; PULSE 105; RESP 22; O2SAT 98
--- NOTE | 2025-07-15 23:38 | PC.NURSE ---
Pt awake and alert, ambulatory to exam room without difficulty or assistance. Pt states feeling some relief with administered medication but would like 1 more neb. Ok'd per Dr. Duval and ordered, RT at bedside to administered. Pt placed in chair per pt comfort. Continued plan of care discussed. No further requests or concerns at this time. Pt placed on blood pressure and pulse ox monitors with alarms on and audible. VS stable at this time. Call light within reach.
--- NOTE | 2025-07-15 23:42 | ED_ITS ---
HPI - SOB/Dyspnea
--- NOTE | 2025-07-15 23:42 | ED.SOB ---
HPI - SOB/Dyspnea General Chief Complaint: Shortness of Breath/Dyspnea Stated Complaint: sob, albuterol not working, sick x1 week vomiting Time Seen by Provider: 07/15/25 23:42 Source: patient Mode of arrival: Ambulatory Limitations: no limitations History of Present Illness HPI Narrative: 24-year-old male history of asthma comes into the ED from home for evaluation of cough shortness breath ongoing persistent for the past 7 days, states it is slightly better but has been using his albuterol inhaler without much relief therefore came into the ED for further evaluation treatment. Patient denies any other symptoms at this time Related Data Home Medications ?Medication ?Instructions ?Recorded ?Confirmed [FLOVENT HFA] PRN ##0 01/11/11 11/17/24 albuterol sulfate 90 mcg/actuation 2 puff inhalation Q4H PRN 06/02/24 11/17/24 aerosol inhaler escitalopram oxalate 20 mg tablet 20 mg PO DAILY 06/02/24 11/17/24 fluticasone propionate 110 inhalation 06/02/24 11/17/24 mcg/actuation HFA aerosol inhaler tizanidine 2 mg tablet 2 mg PO ONCE PM 06/02/24 11/17/24 Previous Rx's ?Medication ?Instructions ?Recorded ALBUTEROL SULFATE (PROVENTIL 3 ml INH Q4HP ##1 07/19/11 0.083%) montelukast 5 mg chewable tablet 5 mg PO QDAY ##30 07/19/11 (Singulair) methylphenidate HCl 54 mg 54 mg PO Q DAY ##30 05/05/12 tablet,extended release 24 hr (Concerta) ALBUTEROL SULFATE (#VENTOLIN HFA) 0.09 mg IH Q4HP ##2 09/03/12 levetiracetam 500 mg tablet 500 mg PO Q12H #60 tabs 03/05/21 (Keppra) benzonatate 200 mg capsule 200 mg PO TID PRN cough #30 caps 11/17/24 fluticasone propionate 50 1 spray intranasal DAILY #16 grams 11/17/24 mcg/actuation nasal spray,suspension (Flonase Allergy Relief) guaifenesin 1,200 mg tablet, 1,200 mg PO Q12H #30 tabs 11/17/24 extended release 12 hr prednisone 20 mg tablet 40 mg (2 x 20 mg) PO DAILY 5 days 07/15/25 #10 tabs albuterol sulfate 90 mcg/actuation 2 inh inhalation Q6H PRN shortness 07/16/25 breath activated powder inhaler of breath or wheezing #1 ea Allergies Allergy/AdvReac Type Severity Reaction Status Date / Time No Known Drug Allergies Allergy Verified 07/15/25 21:14 Review of Systems Review of Systems Narrative: General: Denies fever, chills, weight loss HEENT: Denies headache, eye drainage, eye irritation, head trauma, sore throat, voice change Cardiovascular: Denies any chest pain, palpitations, tachycardia Respiratory: Positive shortness of breath, cough, wheeze GI/: Denies any abdominal pain, nausea, vomiting, diarrhea, bright red blood per rectum, melanotic stools, urinary frequency, urinary retention, dysuria, hematuria MSK: Denies any joint pain, muscle pains, swelling Skin: Denies any rashes, lesions, discoloration Neuro: Denies any headache, lightheadedness, dizziness, fainting, weakness Psych: Denies SI/HI Patient History Medical History Healthy adult tobacco type: smokeless tobacco alcohol intake frequency: a few times a month Exam Narrative Exam Narrative: General: Cooperative, well-developed, not in acute distress HEENT: Normocephalic, atraumatic, PERRLA, normal sclera, eyelids normal Neck: Active full range of motion, atraumatic Chest: Normal to inspection, negative crepitus, no overlying erythema ecchymosis Respiratory: Mild expiratory wheezes in bilateral lung seo Normal respiratory effort, not in acute respiratory distress, clear to auscultation bilaterally negative tachypnea, rhonchi, rales Cardiology: Regular rate rhythm negative gallop, murmur, rubs GI/: No tenderness to palpation, soft, non rigid, normal to inspection, exam deferred MSK: Full active range of motion in all 4 extremities, atraumatic, no tenderness to palpation of any bony prominences Skin: No rashes or lesions noted Neuro: Alert awake oriented x3, moves all 4 extremities spontaneously, cranial nerves intact, able to answer all questions appropriately follows commands appropriately Psych: Cooperative, negative suicidal or homicidal ideations Initial Vital Signs Initial Vital Signs: Vital Signs Temperature 98.9 F 07/15/25 21:14 Pulse Rate 94 H 07/15/25 21:14 Respiratory Rate 22 07/15/25 21:14 Blood Pressure 135/95 H 07/15/25 21:14 Pulse Oximetry 97 07/15/25 21:14 Oxygen Delivery Method Room Air 07/15/25 21:14 Course Orders Ordered: ED Orders 07/15/25 21:22 Covid-19 + FLU A/B + RSV - PCR Stat Strep Grp A by PCR Rapid Stat Discontinued Medications Albuterol/Ipratropium (Albuterol/Ipratropium 3 Ml Ampul) 3 ml INH NOW ONE Stop: 07/15/25 21:21 Last Admin: 07/15/25 21:30 Dose: 3 ml Documented By: MR Albuterol/Ipratropium (Albuterol/Ipratropium 3 Ml Ampul) 3 ml INH NOW ONE Stop: 07/15/25 23:38 Prednisone (Prednisone 20 Mg Tablet) 60 mg PO NOW ONE Stop: 07/15/25 21:29 Last Admin: 07/15/25 21:31 Dose: 60 mg Documented By: LS Vital Signs Vital signs: Vital Signs - 8 hr 07/15/25 21:14 07/15/25 21:58 Temperature 98.9 F Pulse Rate 94 H 94 H Respiratory Rate 22 22 Blood Pressure 135/95 H Pulse Oximetry 97 98 Oxygen Delivery Method Room Air MDM - SOB/Dyspnea Lab Data Labs: Lab Results 07/15/25 Range/Units 21:22 SARS-CoV-2 (PCR) Negative (Negative) Influenza A (RT-PCR) Flu a negative (NEGATIVE) Influenza B (RT-PCR) Flu b negative (NEGATIVE) RSV (PCR) Positive A (Negative) Group A Strep (PCR) Negative (Negative) MDM Narrative Medical decision making narrative: 24-year-old male with a history of asthma comes into the ED from home for evaluation of continued cough shortness of breath ongoing persistent for the past 7 days, states this is causing him some nausea and vomiting, patient states that he has been having to use his inhaler a lot and is causing him to feel ?shaky, patient tested positive for RSV here chest x-ray without any acute cardiopulmonary abnormality, strep negative. Patient had significant improvement after administration of DuoNeb albuterol steroids. He is not requiring any supplemental oxygen, he is well-appearing nontoxic he will be discharged home with symptomatic relief. He was given strict return precautions understands and agrees with the being discharged home with outpatient follow up Discharge Plan Departure Patient Disposition: Home Clinical Impression: Acute URI due to respiratory syncytial virus (RSV), Asthma exacerbation Instructions: DI for Asthma -- Adult, DI for Respiratory Syncytial Virus -- Adults Activity Restrictions/Additional Instructions: Please follow up with the primary care doctor as needed Please read the discharge instructions sheet carefully and bring all papers to all doctor follow-up visits, as it may contain information that your doctor may want to see. Disease processes change and evolve, if your symptoms worsen or if you develop any new symptoms that are concerning to you please return for evaluation. Your evaluation today does not show any evidence of any life-threatening/serious illnesses requiring admission to the hospital or surgery. Please follow-up with your doctor for re-evaluation in approximately 1 day. Seek immediate medical attention for any worrisome symptoms. *If you do not have a primary care provider please contact the [facility] Resource line at [phone]. They will ask some questions about your medical history and help get you set up with a doctor in the community. Prescriptions: New prednisone 20 mg tablet 40 mg PO DAILY 5 Days Qty: 10 0RF albuterol sulfate 90 mcg/actuation aerosol powdr breath activated 2 inh inhalation Q6H PRN (Reason: shortness of breath or wheezing) Qty: 1 2RF No Action fluticasone propionate 110 mcg/actuation HFA aerosol inhaler inhalation tizanidine 2 mg tablet 2 mg PO ONCE PM albuterol sulfate 90 mcg/actuation HFA aerosol inhaler 2 puff inhalation Q4H PRN escitalopram oxalate 20 mg tablet 20 mg PO DAILY guaifenesin 1,200 mg tablet extended release 12hr 1,200 mg PO Q12H Qty: 30 0RF benzonatate 200 mg capsule 200 mg PO TID PRN (Reason: cough) Qty: 30 0RF fluticasone propionate [Flonase Allergy Relief] 50 mcg/actuation spray,suspension 1 spray intranasal DAILY Qty: 16 2RF Rx Instructions: administer into each nostril [FLOVENT HFA] PRN Qty: 0 ALBUTEROL SULFATE (PROVENTIL 0.083%) 3 ml INH Q4HP Qty: 1 12RF montelukast [Singulair] 5 MG tablet,chewable 5 mg PO QDAY Qty: 30 12RF methylphenidate HCl [Concerta] 54 MG tablet extended release 24hr 54 mg PO Q DAY Qty: 30 0RF ALBUTEROL SULFATE (#VENTOLIN HFA) 0.09 mg IH Q4HP Qty: 2 5RF levetiracetam [Keppra] 500 mg tablet 500 mg PO Q12H Qty: 60 0RF Referrals: Candie Muller ARNP [Primary Care Provider, Family Practice] Stand Alone Forms: Patient Portal/API
== END 2025-07-16 00:09 | disposition home or self-care (01) ==
PROVIDERS: Emergency Provider Student in an Organized Health Care Education/Training Program
DX: J06.9 Acute upper respiratory infection, unspecified (principal); B97.4 Respiratory syncytial virus as the cause of diseases classified elsewhere; J45.901 Unspecified asthma with (acute) exacerbation
CPT/HCPCS: 87637; 87651; 94640; 99283